=== PATIENT | male | born 1995 | race Caucasian/White ===

== ENCOUNTER 2020-07-21 11:26 | Emergency (ER) | payer MEDICAID ==
[~2020-07-21] VITALS: Ht 190.5 cm; Wt 123.0 kg
--- NOTE | 2020-07-21 11:34 | PHYS DOC ---
Past History Past Medical History: No Pertinent History Adult General HPI HPI Patient is a 24-year-old male who presents for Covid-like symptoms. Reports URI-like symptoms that developed 6 days ago. Has classic congestion, rhinorrhea and postnasal drip with nonproductive cough that developed into further generalized fatigue and malaise. He started developing generalized nausea, x2 episodes of nonbloody nonbilious emesis in past 24 hours and x3 looser stools than usual this morning which concerned him prompting him to visit our ER for evaluation. Denies any known medical diagnoses, does not take any meds on a daily basis, no fever or known COVID-19 contacts. No chest pain, productive cough, abdominal pain, urinary symptoms. Review of Systems Review of Systems Fourteen body systems of review of systems have been reviewed. See HPI for pertinent positives and negative responses, other jorge all other systems are negative, non-pertinent or non-contributory Physical Exam Physical Exam Constitutional: Well developed, well nourished, no acute distress, non-toxic appearance but appears fatigued HENT: Normocephalic, atraumatic, bilateral external ears normal, scarred tympanic membranes bilaterally from childhood ear infections but no acute abnormalities, oropharynx moist with copious postnasal drip present, no oral exudates, nose normal. Eyes: PERRLA, EOMI, conjunctiva normal, no discharge. Neck: Normal range of motion, no tenderness, supple, no stridor. Cardiovascular: Heart rate regular, sinus rhythm, no murmurs rubs or gallops Lungs & Thorax: Coarse breath sounds bilaterally Abdomen: Bowel sounds normal, soft, generalized tenderness with palpation without guarding or rebound, no masses, no pulsatile masses. Nonsurgical abdomen, no peritoneal signs Skin: Warm, dry, no erythema, no rash. Back: No tenderness, no CVA tenderness. Extremities: No tenderness, no cyanosis, no clubbing, ROM intact, no edema. Neurologic: Alert and oriented X 3, grossly normal motor & sensory function, no focal deficits noted. Psychologic: Affect normal, judgement normal, mood normal. Current Patient Data Vital Signs Vital Signs Date Time Temp Pulse Resp B/P (MAP) Pulse Ox O2 Delivery O2 Flow Rate FiO2 07/21/20 11:42 99.1 98 16 142/93 (109) 99 Room Air Lab Results Laboratory Tests Test 07/21/20 11:46 White Blood Count 17.6 x10^3/uL (4.0-11.0) Red Blood Count 5.35 x10^6/uL (4.30-5.70) Hemoglobin 15.8 g/dL (13.0-17.5) Hematocrit 47.4 % (39.0-53.0) Mean Corpuscular Volume 89 fL (79-100) Mean Corpuscular Hemoglobin 30 pg (25-35) Mean Corpuscular Hemoglobin Concent 33 g/dL (31-37) Red Cell Distribution Width 13.2 % (11.5-14.5) Platelet Count 346 x10^3/uL (140-400) Neutrophils (%) (Auto) 82 % (31-73) Lymphocytes (%) (Auto) 9 % (24-48) Monocytes (%) (Auto) 9 % (0-9) Eosinophils (%) (Auto) 0 % (0-3) Basophils (%) (Auto) 0 % (0-3) Neutrophils # (Auto) 14.4 x10^3uL (1.8-7.7) Lymphocytes # (Auto) 1.6 x10^3/uL (1.0-4.8) Monocytes # (Auto) 1.6 x10^3/uL (0.0-1.1) Eosinophils # (Auto) 0.0 x10^3/uL (0.0-0.7) Basophils # (Auto) 0.1 x10^3/uL (0.0-0.2) Segmented Neutrophils % 86 % (35-66) Band Neutrophils % 2 % (0-9) Lymphocytes % 6 % (24-48) Monocytes % 6 % (0-10) Eosinophils % 0 % (0-5) Basophils % 0 % (0-3) Platelet Estimate Adequate (ADEQUATE) Sodium Level 138 mmol/L (136-145) Potassium Level 3.4 mmol/L (3.5-5.1) Chloride Level 98 mmol/L (98-107) Carbon Dioxide Level 26 mmol/L (21-32) Anion Gap 14 (6-14) Blood Urea Nitrogen 15 mg/dL (8-26) Creatinine 1.6 mg/dL (0.7-1.3) Estimated GFR (Cockcroft-Gault) 52.9 BUN/Creatinine Ratio 9 (6-20) Glucose Level 129 mg/dL (70-99) Calcium Level 9.9 mg/dL (8.5-10.1) Total Bilirubin 0.8 mg/dL (0.2-1.0) Aspartate Amino Transf (AST/SGOT) 23 U/L (15-37) Alanine Aminotransferase (ALT/SGPT) 47 U/L (16-63) Alkaline Phosphatase 77 U/L (46-116) Total Protein 9.1 g/dL (6.4-8.2) Albumin 4.7 g/dL (3.4-5.0) Albumin/Globulin Ratio 1.1 (1.0-1.7) EKG EKG [] Radiology/Procedures Radiology/Procedures XR CHEST 1V Clinical indications: shortness of breath COMPARISON: April 29, 2005. Findings: There is a question of an ill-defined infiltrate within the perihilar region of the right upper lobe. Recommend PA view chest x-ray when possible. No lung is seen on the left side. No pleural effusion or pneumothorax is evident. The heart size and mediastinum and pulmonary vasculature and both moises are unremarkable otherwise. IMPRESSION: Question of a right upper lobe perihilar lung infiltrate. Recommend PA view chest x-ray when possible. Electronically signed by: Dk Saldana MD (07/21/2020 12:53 PM) [id number] Heart Score HEART Score for Chest Pain: HEART Score for Chest Pain Response (Comments) Value History Slighlty/Non-Suspicious 0 Age < 45 0 Risk Factors 1 or 2 Risk Factors 1 Total 1 Risk Factors: Risk Factors: DM, Current or recent (<one month) smoker, HTN, HLP, family history of CAD, obesity. Risk Scores: Risk Factors: DM, Current or recent (<one month) smoker, HTN, HLP, family history of CAD, obesity. Course & Med Decision Making Course & Med Decision Making Discussed with the patient all findings and diagnostic testing. I discussed most likely diagnosis of viral syndrome with concern for pneumonia and potential for COVID-19 infection given symptoms. I reviewed grossly negative physical exam findings but discloses concern for right upper lobe pneumonia. As such, joint decision to start antibiotics, patient given azithromycin while in ER and tolerated this, subsequent prescription will be written. Given that he is afebrile and hemodynamically stable and ambulatory and tolerating p.o. intake, joint decision to defer hospital admission for discharge home with continued supportive care and close outpatient follow-up when appropriate. Strict return precautions were also discussed at length with good understanding by patient. Patient voiced understanding and agreement with the plan. Patient knows to come back for repeat evaluation if concerning signs or symptoms present prior to outpatient follow-up. Hemodynamically stable, ambulatory and well-appearing at time of disposition. Dragon Disclaimer Dragon Disclaimer This electronic medical record was generated, in whole or in part, using a voice recognition dictation system. Departure Departure: Impression: Primary Impression: Pneumonia Additional Impressions: Person under investigation for COVID-19 Nausea vomiting and diarrhea Disposition: 01 DC HOME SELF CARE/HOMELESS Condition: STABLE Referrals: MATTHEW CALDERON MD (PCP) Patient Instructions: Dehydration, Adult, Pneumonia, Adult Additional Instructions: You were seen for headache, fever, body aches, and possible infection with COVID-19. Your physical exam was reassuring. Your chest x-ray was normal. We tested you for COVID-19 but this test does not come back for 1 to 2 days. In the meantime you need to quarantine yourself at home away from all other individuals, especially those who are elderly or have any other chronic health issues or an immunocompromised status. You should return to the ED if you develop worsening cough, shortness of breath, chest pain, or any other new or concerning symptoms. Alternate Tylenol and ibuprofen as needed for body aches and pain. If your test does come back positive you need to quarantine yourself for 10 days until symptom-free. You should make sure to drink plenty of fluids and get plenty of rest. Scripts Azithromycin (AZITHROMYCIN TABLET) 250 Mg Tablet 250 MG PO DAILY for ANTI-BIOTIC for 4 Days, #4 TAB 0 Refills Prov: NIRANJAN TORRE DO 07/21/20 Problem Qualifiers NIRANJAN TORRE DO Jul 21, 2020 11:34
[2020-07-21 11:42] VITALS: BP 142/93
[2020-07-21] MEDS ORDERED: ONDANSETRON PF 4 MG/2 ML VIAL. IVP ONE (12:00)
[2020-07-21 12:18] LABS: BASO # 0.1 x10^3/uL (0.0-0.2); BASO % 0 % (0-3); EOS % 0 % (0-3); HEMATOCRIT 47.4 % (39.0-53.0); HEMOGLOBIN 15.8 g/dL (13.0-17.5); LYMPH # 1.6 x10^3/uL (1.0-4.8); LYMPH % 9 % (24-48); MEAN CORPUSCULAR HEMOGLOBIN 30 pg (25-35); MEAN CORPUSCULAR HGB CONC 33 g/dL (31-37); MEAN CORPUSCULAR VOLUME 89 fL (79-100); MONO # 1.6 x10^3/uL (0.0-1.1); MONO % 9 % (0-9); NEUT # 14.4 x10^3uL (1.8-7.7); NEUT % 82 % (31-73); PLATELET COUNT 346 x10^3/uL (140-400); RED BLOOD COUNT 5.35 x10^6/uL (4.30-5.70); RED CELL DISTRIBUTION WIDTH 13.2 % (11.5-14.5); WHITE BLOOD COUNT 17.6 x10^3/uL (4.0-11.0)
[2020-07-21 12:31] LABS: CALCIUM 9.9 mg/dL (8.5-10.1); CREATININE 1.6 mg/dL (0.7-1.3); GFR 52.9; POTASSIUM 3.4 mmol/L (3.5-5.1)
[2020-07-21 12:38] LABS: ALBUMIN 4.7 g/dL (3.4-5.0); ALBUMIN/GLOBULIN RATIO 1.1 (1.0-1.7); TOTAL BILIRUBIN 0.8 mg/dL (0.2-1.0); TOTAL PROTEIN 9.1 g/dL (6.4-8.2)
[2020-07-21] MEDS ORDERED: IV NORMAL SALINE 1,000ML 1,000 ML IV ONE (12:45)
--- NOTE | 2020-07-21 12:56 | RAD ---
XR CHEST 1V Clinical indications: shortness of breath COMPARISON: April 29, 2005. Findings: There is a question of an ill-defined infiltrate within the perihilar region of the right u pper lobe. Recommend PA view chest x-ray when possible. No lung is seen on the left side. No pleural effusion or pneumothorax is evident. The heart size and mediastinum and pulmonary vasculature and bot h moises are unremarkable otherwise. IMPRESSION: Question of a right upper lobe perihilar lung infiltrate. Recommend PA view chest x-ray w hen possible. Electronically signed by: Dk Saldana MD (07/21/2020 12:53 PM) [id number]
[2020-07-21] MEDS ORDERED: AZITHROMYCIN 250 MG TABLET. PO ONE (13:15)
[2020-07-21] MEDS ORDERED: AZIT250T6 PO (13:34)
[2020-07-21 14:26] LABS: % BANDS 2 % (0-9); % BASOS 0 % (0-3); % EOS 0 % (0-5); % LYMPHS 6 % (24-48); % MONOS 6 % (0-10); % SEGS 86 % (35-66); PLT ESTIMATE ADEQUATE (ADEQUATE)
--- NOTE | 2020-07-25 10:48 | NUR ---
IP: attempt to notify patient of COVID result, left callback message.
== END 2020-07-21 13:46 | disposition home or self-care (01) ==
LOC: ER 11:26
DX: J18.9 Pneumonia, unspecified organism (principal); R11.2 Nausea with vomiting, unspecified; R19.7 Diarrhea, unspecified; Z20.828 Contact with and (suspected) exposure to other viral communicable diseases
CPT/HCPCS: 36415; 71045; 80053; 85007; 85025; 96361; 96374; 99284; C9803; J2405; J7030; U0003